=== PATIENT | male | born 1985 | race Two or more races ===

== ENCOUNTER 2020-05-29 09:21 | Emergency (ER) | payer SELFPAY ==
--- NOTE | 2020-05-29 10:25 | EDM.PDOC ---
ED HPI GENERAL MEDICAL PROBLEM - General Chief Complaint: Respiratory Problem Stated Complaint: FEVER AND COUGH EXPOSED TO COVID 19 Time Seen by Provider: 05/29/20 10:24 - History of Present Illness INITIAL COMMENTS - FREE TEXT/NARRATIVE: 34-year-old male presents the emergency room with fever mild cough and diarrhea. He has been exposed to somebody with confirmed COVID. Patient has a 2-day history of diarrhea he is developing a cough but very mild at this point and has had intermittent fevers. His friend's that he lives with has confirmed COVID-19. The patient has had several loose stools a day for the last couple of days. He is drinking lots of fluids not complaining of any abdominal pain no nausea no vomiting. Patient has past medical history significant for penicillin allergy and he had a tonsillectomy when he was very young. He is not on any routine medications and denies any ongoing medical issues. The patient speaks limited Icelandic and we use the translating service during the course of his interview exam and discharge. Headache Pain Score (Numeric/FACES): 10 - Related Data Allergies Allergy/AdvReac Type Severity Reaction Status Date / Time Penicillins Allergy Cannot Verified 05/29/20 09:59 Remember Home Meds: Home Meds . [No Known Home Meds] 05/29/20 [History] Past Medical History - Past Surgical History HEENT Surgical History: Reports: Tonsillectomy Social & Family History - Tobacco Use Smoking Status *Q: Never Smoker Second Hand Smoke Exposure: No - Caffeine Use Caffeine Use: Reports: None - Recreational Drug Use Recreational Drug Use: No ED ROS GENERAL - Review of Systems Review Of Systems: See Below Constitutional: Reports: Fever HEENT: Reports: No Symptoms Respiratory: Reports: Cough (Mild). Denies: Shortness of Breath Cardiovascular: Reports: No Symptoms. Denies: Chest Pain GI/Abdominal: Reports: Diarrhea. Denies: Abdominal Pain, Nausea, Vomiting : Reports: No Symptoms Musculoskeletal: Reports: Other (Mild muscle aches associated with this illness) Neurological: Reports: No Symptoms Psychiatric: Reports: No Symptoms Hematologic/Lymphatic: Reports: No Symptoms ED EXAM, GENERAL - Physical Exam Exam: See Below Exam Limited By: Language Barrier (Language interpretation service used) General Appearance: Alert, No Apparent Distress Eye Exam: Bilateral Eye: Normal Inspection Ears: Normal External Exam, Normal Canal, Hearing Grossly Normal, Normal TMs Nose: Normal Inspection, Normal Mucosa, No Blood Throat/Mouth: Normal Inspection, Normal Lips, Normal Teeth, Normal Gums, Normal Oropharynx, Normal Voice, No Airway Compromise, Other (Mucosa is well moistened) Head: Atraumatic, Normocephalic Neck: Normal Inspection, Supple, Non-Tender, Full Range of Motion. No: Lymphadenopathy (L), Lymphadenopathy (R) Respiratory/Chest: No Respiratory Distress, Lungs Clear, Normal Breath Sounds Cardiovascular: Regular Rate, Rhythm, No Edema, No Murmur GI/Abdominal: Normal Bowel Sounds, Soft, Non-Tender. No: Guarding, Rigid, Rebound Back Exam: Normal Inspection. No: CVA Tenderness (L), CVA Tenderness (R) Extremities: Normal Inspection, No Pedal Edema Course - Vital Signs Last Recorded V/S: Last Vital Signs Temp 36.9 C 05/29/20 09:56 Pulse 85 05/29/20 09:56 Resp 18 05/29/20 09:56 BP 142/102 H 05/29/20 09:56 Pulse Ox 98 05/29/20 09:56 - Re-Assessments/Exams Free Text/Narrative Re-Assessment/Exam: 05/29/20 11:41 Other than a COVID screen I do not think laboratory evaluation is further indicated and the patient agrees he has mild symptoms at this point we discussed the importance of pushing fluids and signs of dehydration to watch for and he agrees to return as needed Departure - Departure Time of Disposition: 11:41 Disposition: Home, Self-Care 01 Clinical Impression: Fever, Cough, Diarrhea - Discharge Information Referrals: PCP,None [Primary Care Provider] - Forms: ED Department Discharge Additional Instructions: Return to the emergency room with any questions problems or worsening symptoms. Stay at home isolation as we discussed for at least 72 hours after all your symptoms have completely resolved and after 72 hours of not using any medication that could potentially control your fever such as Tylenol or Motrin. And remain in isolation for at least 72 hours after all your housemates have resolved symptoms. Sepsis Event Note (ED) - Evaluation Sepsis Screening Result: No Definite Risk - Focused Exam Vital Signs: Vital Signs Temp Pulse Resp BP Pulse Ox 05/29/20 09:56 36.9 C 85 18 142/102 H 98
== END 2020-05-29 12:07 | disposition home or self-care (01) ==
LOC: JD.ED 09:21
DX: R50.9 Fever, unspecified (principal); R05 Cough; R19.7 Diarrhea, unspecified; Z88.0 Allergy status to penicillin
CPT/HCPCS: 99282; 99284; U0002